=== PATIENT | female | born 1970 | race Caucasian/White ===

== ENCOUNTER 2016-08-28 08:29 | Day surgery (SDC) | payer BC | END 2016-08-28 08:45 | disposition home or self-care (01) | LOC: HOP 08:29 | PROVIDERS: ATTEND Internal Medicine Gastroenterology | DX: K21.9 Gastro-esophageal reflux disease without esophagitis (principal); K22.0 Achalasia of cardia; Z53.09 Procedure and treatment not carried out because of other contraindication ==